=== PATIENT | male | born 1995 | race Caucasian/White ===

== ENCOUNTER 2017-08-16 15:15 | Emergency (ER) | payer SELFPAY, OTHER | END 2017-08-16 16:09 | disposition home or self-care (01) | LOC: ER 15:15 | DX: K52.9 Noninfective gastroenteritis and colitis, unspecified (principal); R51 Headache; J45.909 Unspecified asthma, uncomplicated; Z90.89 Acquired absence of other organs | CPT/HCPCS: 99281 ==

== ENCOUNTER 2017-10-15 13:45 | Emergency (ER) | payer SELFPAY ==
[2017-10-15] MEDS ORDERED: IOHEXOL 300 MG/ML 100ML VIAL. IV (15:30)
[2017-10-15] MEDS ORDERED: CONTRAST GIVEN. MC (15:30)
[2017-10-15 15:33] LABS: ADD MAN DIFF? NO
[2017-10-15 15:34] LABS: BASO % 0 % (0-3); EOS # 0.2 x10^3/uL (0.0-0.7); EOS % 2 % (0-3); HEMATOCRIT 46.7 % (39.0-53.0); HEMOGLOBIN 16.2 g/dL (13.0-17.5); LYMPH # 1.3 x10^3/uL (1.0-4.8); LYMPH % 15 % (24-48); MEAN CORPUSCULAR HEMOGLOBIN 32 pg (25-35); MEAN CORPUSCULAR HGB CONC 35 g/dL (31-37); MEAN CORPUSCULAR VOLUME 93 fL (79-100); MONO # 0.9 x10^3/uL (0.0-1.1); MONO % 10 % (0-9); NEUT # 6.6 x10^3uL (1.8-7.7); NEUT % 73 % (31-73); PLATELET COUNT 209 x10^3/uL (140-400); RED BLOOD COUNT 5.05 x10^6/uL (4.30-5.70); RED CELL DISTRIBUTION WIDTH 12.8 % (11.5-14.5); WHITE BLOOD COUNT 9.1 x10^3/uL (4.0-11.0)
[2017-10-15] MEDS: IV NORMAL SALINE 1000ML BAG 1,000 ML IV (15:35)
[2017-10-15] MEDS: ONDANSETRON PF 4 MG/2 ML VIAL. IV (15:35)
[2017-10-15] MEDS: fentaNYL PF VIAL 100 MCG/2 ML VIAL IV (15:36)
[2017-10-15 15:48] LABS: ANION GAP 6 (6-14); BLOOD UREA NITROGEN 15 mg/dL (8-26); BUN/CREATININE RATIO 15 (6-20); CALCIUM 8.9 mg/dL (8.5-10.1); CARBON DIOXIDE 28 mmol/L (21-32); CHLORIDE 102 mmol/L (98-107); GFR 95.3; GLUCOSE 107 mg/dL (70-99); POTASSIUM 3.7 mmol/L (3.5-5.1); SODIUM 136 mmol/L (136-145)
[2017-10-15 15:53] LABS: ALBUMIN 4.3 g/dL (3.4-5.0); ALBUMIN/GLOBULIN RATIO 1.1 (1.0-1.7); ALK PHOS 91 U/L (46-116); ALT (SGPT) 23 U/L (16-63); AST (SGOT) 20 U/L (15-37); TOTAL BILIRUBIN 0.7 mg/dL (0.2-1.0); TOTAL PROTEIN 8.3 g/dL (6.4-8.2)
== END 2017-10-15 17:10 | disposition home or self-care (01) ==
LOC: ER 13:45
DX: J36 Peritonsillar abscess (principal); J45.909 Unspecified asthma, uncomplicated
CPT/HCPCS: 36415; 70491; 80053; 85025; 96374; 96375; 99285-25; J2405; J3010; J7030

== ENCOUNTER 2018-10-11 18:31 | Emergency (ER) | payer SELFPAY ==
[~2018-10-11] VITALS: Ht 175.3 cm; Wt 63.5 kg
[~2018-10-11 18:31] MED LIST: AMOX250S20 PO; HYDR15SO6 PO
[2018-10-11 18:59] VITALS: BP 137/78
[2018-10-11 19:38] LABS: BILIRUBIN,URINE NEGATIVE (NEG); CLARITY,URINE CLEAR; COLOR,URINE YELLOW; NITRITE,URINE NEGATIVE (NEG); PH,URINE 6.5; PROTEIN,URINE NEGATIVE (NEG-TRACE); UROBILINOGEN,URINE 0.2 mg/dL (0.2 mg/dL)
--- NOTE | 2018-10-11 19:50 | PHYS DOC ---
Past Medical History Past Medical History: No Pertinent History Additional Past Medical Histor: RSV, premature Past Surgical History: No Surgical History Alcohol Use: None Drug Use: None Adult General Chief Complaint Chief Complaint: TESTICULAR PAIN OR INJURY HPI HPI Patient is a 23 year old male who presents with mild left testicular pain that began today after lifting something heavy at work. Patient states he felt something pull in his left testicle. Patient denies any difficulty urinating. He states he has had similar sensation a couple weeks ago. Review of Systems Review of Systems Constitutional: Denies fever or chills [] Eyes: Denies change in visual acuity, redness, or eye pain [] HENT: Denies nasal congestion or sore throat [] Respiratory: Denies cough or shortness of breath [] Cardiovascular: No additional information not addressed in HPI [] GI: Denies abdominal pain, nausea, vomiting, bloody stools or diarrhea [] : Reports left testicular pain. Denies dysuria or hematuria [] Musculoskeletal: Denies back pain or joint pain [] Integument: Denies rash or skin lesions [] Neurologic: Denies headache, focal weakness or sensory changes [] All other systems were reviewed and found to be within normal limits, except as documented in this note. Allergies Allergies Allergies Coded Allergies Type Severity Reaction Last Updated Verified No Known Drug Allergies 06/21/13 No Physical Exam Physical Exam Constitutional: Well developed, well nourished, no acute distress, non-toxic appearance. [] HENT: Normocephalic, atraumatic, bilateral external ears normal, oropharynx moist, no oral exudates, nose normal. [] Eyes: PERRLA, EOMI, conjunctiva normal, no discharge. [] Neck: Normal range of motion, no tenderness, supple, no stridor. [] Cardiovascular:Heart rate regular rhythm, no murmur [] Lungs & Thorax: Bilateral breath sounds clear to auscultation [] Abdomen: Bowel sounds normal, soft, no tenderness, no masses, no pulsatile masses. [] Male exam: External male appears normal. Descended testicles with no obvious lesions. Palpable veins noted on the left scrotal region likely varicocele. No inguinal hernia is noted bilaterally. Skin: Warm, dry, no erythema, no rash. [] Back: No tenderness, no CVA tenderness. [] Extremities: No tenderness, no cyanosis, no clubbing, ROM intact, no edema. [] Neurologic: Alert and oriented X 3, normal motor function, normal sensory fun ction, no focal deficits noted. [] Psychologic: Affect normal, judgement normal, mood normal. [] Current Patient Data Vital Signs Vital Signs Date Time Temp Pulse Resp B/P (MAP) Pulse Ox O2 Delivery O2 Flow Rate FiO2 10/11/18 18:59 98.5 100 16 137/78 (97) 98 Room Air 98.5 Lab Values Laboratory Tests Test 10/11/18 19:25 Urine Collection Type Unknown Urine Color Yellow Urine Clarity Clear Urine pH 6.5 Urine Specific [place] 1.015 Urine Protein Negative mg/dL (NEG-TRACE) Urine Glucose (UA) Negative mg/dL (NEG) Urine Ketones (Stick) Negative mg/dL (NEG) Urine Blood Negative (NEG) Urine Nitrite Negative (NEG) Urine Bilirubin Negative (NEG) Urine Urobilinogen Dipstick 0.2 mg/dL (0.2 mg/dL) Urine Leukocyte Esterase Negative (NEG) Urine RBC Occ /HPF (0-2) Urine WBC Rare /HPF (0-4) Urine Squamous Epithelial Cells Occ /LPF Urine Bacteria 0 /HPF (0-FEW) EKG EKG [] Radiology/Procedures Radiology/Procedures []PROCEDURE: TESTICULAR/SCROTUM Scrotal ultrasound 10/11/2018 CLINICAL HISTORY: Left scrotal pain. TECHNIQUE: Using a combination of real-time ultrasound imaging and color-flow and pulse Doppler imaging techniques, duplex evaluation of the scrotal sac and its contents was performed. Multiple images were obtained. FINDINGS: Both testicles are within normal limits in size and echogenicity. The right testicle measures 4.6 x 3.0 x 2.2 cm in longitudinal, transverse, and AP dimensions. The left testicle measures 4.0 x 2.8 x 1.9 cm in size. No focal abnormality of either testicle is seen. Normal color-flow and pulse doppler imaging to both testicles is noted. Both epididymal heads are within normal limits in size. A 4.4 mm cyst is seen involving the left epididymal head. There is a small to moderate-sized left varicocele which measures 4.5 cm in size. No hydrocele is seen. IMPRESSION: 1. No abnormality of either testicle is seen. 2. 4.4 mm cyst is seen within the left epididymal head. 3. Small to moderate-sized left varicocele. Electronically signed by: Preet Prather MD (10/11/2018 9:24 PM) [facility] DICTATED and SIGNED BY: PREET PRATHER MD DATE: 10/11/182123 Course & Med Decision Making Course & Med Decision Making Pertinent Labs and Imaging studies reviewed. (See chart for details) This is a 23-year-old male patient presenting to the ED today complaining of left testicle pain after lifting something heavy at work. Urine analysis is negative for infection. Testicular ultrasound was noted for 4.4 mm cyst is seen within the left epididymal head.Small to moderate-sized left varicocele. Patient was provided urologist for follow-up. OTC pain relievers recommended. Dragon Disclaimer Dragon Disclaimer This electronic medical record was generated, in whole or in part, using a voice recognition dictation system. Departure Departure Impression: Primary Impression: Left varicocele Additional Impression: Scrotal cyst Disposition: HOME, SELF-CARE Condition: STABLE Referrals: ROSALINE LARA APRN (PCP) MEGHNA KINSEY MD follow up in 1 week Patient Instructions: Varicose Veins Additional Instructions: You were evaluated in the emergency room on noted to have a cyst in your left epididymal region as well as varicocele which is enlarged veins in the scrotum. We provided you urologist, contact them and follow-up. Take ibuprofen as needed for pain or discomfort. You can apply ice to the affected area. Problem Qualifiers MAHAD ANGEL APRN Oct 11, 2018 19:50
[2018-10-11 19:55] LABS: BACTERIA,URINE 0 /HPF (0-FEW); RBC,URINE OCC /HPF (0-2); WBC,URINE RARE /HPF (0-4)
[2018-10-11 19:56] LABS: SQUAMOUS EPITHELIAL CELL,UR OCC /LPF
--- NOTE | 2018-10-11 21:27 | RAD ---
Scrotal ultrasound 10/11/2018 CLINICAL HISTORY: Left scrotal pain. TECHNIQUE: Using a combination of real-time ultrasound imaging and color-flow and pulse Doppler imaging techniques, duplex evaluation of the scrotal sac and its contents was performed. Multiple images were obtained. FINDINGS: Both testicles are within normal limits in size and echogenicity. The right testicle measures 4.6 x 3.0 x 2.2 cm in longitudinal, transverse, and AP dimensions. The left testicle measures 4.0 x 2.8 x 1.9 cm in size. No focal abnormality of either testicle is seen. Normal color-flow and pulse doppler imaging to both testicles is noted. Both epididymal heads are within normal limits in size. A 4.4 mm cyst is seen involving the left epididymal head. There is a small to moderate-sized left varicocele which measures 4.5 cm in size. No hydrocele is seen. IMPRESSION: 1. No abnormality of either testicle is seen. 2. 4.4 mm cyst is seen within the left epididymal head. 3. Small to moderate-sized left varicocele. Electronically signed by: Preet Prather MD (10/11/2018 9:24 PM) [facility]
== END 2018-10-11 21:57 | disposition home or self-care (01) ==
LOC: ER 18:31
DX: I86.1 Scrotal varices (principal); L72.9 Follicular cyst of the skin and subcutaneous tissue, unspecified
CPT/HCPCS: 76870; 81001; 99285-25